=== PATIENT | male | born 1960 | race Caucasian/White ===

== ENCOUNTER 2017-07-29 18:21 | Emergency (ER) | payer MEDICARE, MEDICAID ==
[~2017-07-29] VITALS: Ht 188 cm; Wt 70.0 kg
[2017-07-29] MEDS ORDERED: LORazepam 2 mg/ml vial IV ONE (18:25)
[2017-07-29] MEDS ORDERED: normal saline 1000ML IV soln IVB ONE (18:25)
[2017-07-29] MEDS ORDERED: levetiracetam inj 500 MG in normal saline 100ml IV soln 95 ML IV ONE (18:25)
[2017-07-29 18:59] LABS: BASOPHILS % (AUTO) 0.3 % (0-1); EOSINOPHILS # (AUTO) 0.2 X10'3 (0-0.9); EOSINOPHILS % (AUTO) 2.6 % (0-6); HEMATOCRIT 45.2 % (42.0-52.0); HEMOGLOBIN 15.6 g/dl (14.0-17.9); MEAN CORPUSCULAR HEMOGLOBIN 30.9 PG (27.0-31.0); MEAN CORPUSCULAR HGB CONC 34.5 % (33.0-36.5); MEAN CORPUSCULAR VOLUME 89.6 FL (78-98); MEAN PLATELET VOLUME 6.8 FL (7.4-10.4); MONOCYTES # (AUTO) 0.7 X10'3 (0-0.9); MONOCYTES % (AUTO) 7.6 % (2-12); NEUTROPHILS # (AUTO) 5.8 X10'3 (1.8-7.7); NEUTROPHILS % (AUTO) 66.5 % (42-75); PLATELET COUNT 243 X10'3 (140-440); RED BLOOD COUNT 5.04 X10'6 (4.70-6.10); RED CELL DISTRIBUTION WIDTH 12.9 % (11.5-14.5); WHITE BLOOD COUNT 8.7 X10'3 (4.5-11.0)
[2017-07-29 19:16] LABS: ALANINE AMINOTRANSFERASE 31 U/L (12-78); ALBUMIN 4.2 G/DL (3.4-5.0); ALBUMIN/GLOBULIN RATIO 1.4 (1.1-1.5); ALKALINE PHOSPHATASE 98 IU/L (46-116); ANION GAP 13 (8-16); ASPARTATE AMINO TRANSFERASE 16 U/L (10-37); BILIRUBIN,TOTAL 0.3 MG/DL (0.1-1.0); BLOOD UREA NITROGEN 10 MG/DL (7-18); BUN/CREATININE RATIO 11.2 (5.4-32.0); CALCIUM 9.1 MG/DL (8.5-10.1); CHLORIDE 99 MMOL/L (99-107); CREATINE KINASE 54 U/L (39-308); CREATININE 0.89 MG/DL (0.60-1.10); GLUCOSE 99 MG/DL (70-104); POTASSIUM 3.5 MMOL/L (3.5-5.1); SODIUM 136 MMOL/L (135-145); TOTAL CARBON DIOXIDE 24.3 MMOL/L (24-32); TOTAL PROTEIN 7.3 G/DL (6.4-8.2); eGFR 89 ML/MIN
[2017-07-29] MEDS ORDERED: LEVE10002 PO (19:27)
[2017-07-29] MEDS ORDERED: FLUT16SP2 BOTHNARES (19:27)
[2017-07-29] MEDS ORDERED: DOCU100C41 PO (19:27)
[2017-07-29] MEDS ORDERED: OLAN10TA19 PO (19:27)
[2017-07-29] MEDS ORDERED: OMEP40CA37 PO (19:27)
[2017-07-29] MEDS ORDERED: OXCA150T5 PO (19:27)
[2017-07-29] MEDS ORDERED: FAMC500T18 PO (19:27)
[2017-07-29] MEDS ORDERED: DUTA0.5C40 PO (19:27)
[2017-07-29 19:50] VITALS: BP 132/88
== END 2017-07-29 21:00 | disposition home or self-care (01) ==
LOC: ER 18:22
DX: G40.909 Epilepsy, unspecified, not intractable, without status epilepticus (principal)
CPT/HCPCS: 36415; 80053; 82550; 85025; 96365; 96375; 99284; J1953; J2060; J7030

== ENCOUNTER 2019-03-17 20:20 | Emergency (ER) | payer MEDICARE, MEDICAID ==
[~2019-03-17] VITALS: Ht 157.5 cm; Wt 54.5 kg
[~2019-03-17 20:20] MED LIST: DOCU100C41 PO; DUTA0.5C40 PO; FAMC500T18 PO; FLUT16SP2 BOTHNARES; LEVE10002 PO; OLAN10TA19 PO; OMEP40CA13 PO; OXCA150T5 PO
[2019-03-17] MEDS ORDERED: TETanus/Pertussis (Acell)/Diphther VAC/PF (Tdap-Adult) 0.5ml syringe IMVAC ONE (20:25)
--- NOTE | 2019-03-17 20:36 | NUR ---
CARI YUN MOM [phone] PLEASE HAVE ACTIVITY AIDE CALL MOM
[2019-03-17] MEDS ORDERED: LIDOcaine 1% W/epiNEPHrine 1:200,000 10ml vial IJ ONE (22:25)
[2019-03-17 23:18] VITALS: BP 130/86
== END 2019-03-17 23:22 | disposition home or self-care (01) ==
LOC: ER 20:20
DX: S01.81XA Laceration without foreign body of other part of head, initial encounter (principal); R11.10 Vomiting, unspecified; R41.82 Altered mental status, unspecified; G80.9 Cerebral palsy, unspecified; W18.39XA Other fall on same level, initial encounter; Y93.89 Activity, other specified; Y92.89 Other specified places as the place of occurrence of the external cause; Y99.8 Other external cause status
CPT/HCPCS: 12013; 90471; 90715; 99284

== ENCOUNTER 2020-01-25 15:57 | Emergency (ER) | payer MEDICARE, MEDICAID ==
[~2020-01-25] VITALS: Ht 175.3 cm; Wt 56.4 kg
[~2020-01-25 15:57] MED LIST changes: -FAMC500T18 PO; +FAMC500T23 PO
[2020-01-25] MEDS ORDERED: LIDOcaine 1% W/epiNEPHrine 1:200,000 10ml vial IJ ONE (16:30)
[2020-01-25] MEDS ORDERED: LIDOcaine 1% w/epiNEPHrine 1:200,000 30ml vial IJ ONE (16:35)
[2020-01-25 17:51] VITALS: BP 135/88
== END 2020-01-25 17:48 | disposition home or self-care (01) ==
LOC: ER 15:58
DX: S01.81XA Laceration without foreign body of other part of head, initial encounter (principal); G80.9 Cerebral palsy, unspecified; X58.XXXA Exposure to other specified factors, initial encounter; Y93.9 Activity, unspecified; Y92.89 Other specified places as the place of occurrence of the external cause; Y99.8 Other external cause status; Z79.899 Other long term (current) drug therapy
CPT/HCPCS: 12013; 99282

== ENCOUNTER 2020-05-01 15:50 | Emergency (ER) | payer MEDICARE, MEDICAID ==
[~2020-05-01] VITALS: Ht 157.5 cm; Wt 58.1 kg
[2020-05-01] MEDS ORDERED: lactulose 20gm/30ml cup PO ONE (16:50)
[2020-05-01] MEDS ORDERED: magnesium citrate 296ml oral solution PO ONE (16:50)
[2020-05-01 17:15] LABS: BASOPHILS % (AUTO) 0.3 % (0-1); EOSINOPHILS # (AUTO) 0.2 X10'3 (0-0.9); EOSINOPHILS % (AUTO) 2.9 % (0-6); HEMATOCRIT 41.9 % (42.0-52.0); LYMPHOCYTES # (AUTO) 1.7 X10'3 (1.1-4.8); MEAN CORPUSCULAR HEMOGLOBIN 31.4 PG (27.0-31.0); MEAN CORPUSCULAR HGB CONC 33.4 g/dL (33.0-36.5); MEAN CORPUSCULAR VOLUME 93.9 FL (78-98); MEAN PLATELET VOLUME 6.7 FL (7.4-10.4); MONOCYTES # (AUTO) 0.7 X10'3 (0-0.9); MONOCYTES % (AUTO) 10.1 % (2-12); NEUTROPHILS # (AUTO) 4.6 X10'3 (1.8-7.7); NEUTROPHILS % (AUTO) 63.7 % (42-75); PLATELET COUNT 228 X10'3 (140-440); RED BLOOD COUNT 4.46 X10'6 (4.70-6.10); RED CELL DISTRIBUTION WIDTH 14.4 % (11.5-14.5); WHITE BLOOD COUNT 7.2 X10'3 (4.5-11.0)
[2020-05-01 17:28] LABS: ALANINE AMINOTRANSFERASE 16 U/L (12-78); ALBUMIN 3.9 G/DL (3.4-5.0); ALBUMIN/GLOBULIN RATIO 1.1 (1.1-1.5); ALKALINE PHOSPHATASE 90 IU/L (46-116); ANION GAP 9 (8-16); ASPARTATE AMINO TRANSFERASE 18 U/L (10-37); BILIRUBIN,TOTAL 0.3 MG/DL (0.1-1.0); BLOOD UREA NITROGEN 12 MG/DL (7-18); BUN/CREATININE RATIO 17.4 (5.4-32.0); CALCIUM 9.5 MG/DL (8.5-10.1); CHLORIDE 107 MMOL/L (99-107); CREATININE 0.69 MG/DL (0.60-1.10); GLUCOSE 77 MG/DL (70-104); LIPASE 145 U/L (73-393); POTASSIUM 3.9 MMOL/L (3.5-5.1); SODIUM 144 MMOL/L (135-145); TOTAL CARBON DIOXIDE 27.7 MMOL/L (24-32); TOTAL PROTEIN 7.4 G/DL (6.4-8.2); eGFR > 90 ML/MIN
[2020-05-01] MEDS ORDERED: NA P133E RC (17:32)
[2020-05-01] MEDS ORDERED: MAGN296S68 PO (17:32)
--- NOTE | 2020-05-01 20:05 | NUR ---
PT ON BSC, PASSING GAS. CAREGIVER IN ROOM HELPING PT
--- NOTE | 2020-05-01 21:04 | NUR ---
ADMINISTERED FLEET ENEMA. PT TOLERATED PROCEDURE WELL, CAREGIVER AT BS FOR COMFORT. PT ON BSC ATTEMPTING TO HAVE BM NOW. PRODUCING GAS
--- NOTE | 2020-05-01 21:50 | NUR ---
2ND FLEET ENEMA ADMINISTERED PER JULIET ANDREW ORDER.
--- NOTE | 2020-05-01 22:18 | NUR ---
PT HAS BEEN PASSING GAS. NOW ON BSC, ATTEMPTING TO HAVE BM. CAREGIVER STILL AT BS
[2020-05-02 02:15] VITALS: BP 137/90
== END 2020-05-02 02:10 | disposition home or self-care (01) ==
LOC: ER 15:50
DX: K59.00 Constipation, unspecified (principal); R43.8 Other disturbances of smell and taste; Z86.69 Personal history of other diseases of the nervous system and sense organs; Z79.899 Other long term (current) drug therapy
CPT/HCPCS: 36415; 74018; 80053; 83690; 85025; 99284

== ENCOUNTER 2020-08-03 13:34 | Emergency (ER) | payer MEDICARE, MEDICAID ==
[~2020-08-03] VITALS: Ht 165.1 cm; Wt 65.9 kg
[~2020-08-03 13:34] MED LIST changes: +MAGN296S68 PO; +NA P133E RC; -OMEP40CA13 PO; +OMEP40CA21 PO
[2020-08-03 14:42] LABS: BASOPHILS % (AUTO) 0.3 % (0-1); EOSINOPHILS # (AUTO) 0.2 X10'3 (0-0.9); EOSINOPHILS % (AUTO) 2.2 % (0-6); HEMATOCRIT 40.9 % (42.0-52.0); HEMOGLOBIN 13.8 g/dl (14.0-17.9); LYMPHOCYTES # (AUTO) 1.1 X10'3 (1.1-4.8); LYMPHOCYTES % (AUTO) 12.9 % (21-51); MEAN CORPUSCULAR HGB CONC 33.8 g/dL (33.0-36.5); MEAN CORPUSCULAR VOLUME 94.7 FL (78-98); MEAN PLATELET VOLUME 6.9 FL (7.4-10.4); MONOCYTES # (AUTO) 0.9 X10'3 (0-0.9); MONOCYTES % (AUTO) 11.1 % (2-12); NEUTROPHILS # (AUTO) 6.1 X10'3 (1.8-7.7); NEUTROPHILS % (AUTO) 73.5 % (42-75); PLATELET COUNT 194 X10'3 (140-440); RED BLOOD COUNT 4.32 X10'6 (4.70-6.10); WHITE BLOOD COUNT 8.3 X10'3 (4.5-11.0)
[2020-08-03 15:06] LABS: ALBUMIN 3.6 G/DL (3.4-5.0); ALBUMIN/GLOBULIN RATIO 1.3 (1.1-1.5); ALKALINE PHOSPHATASE 92 IU/L (46-116); ANION GAP 8 (8-16); ASPARTATE AMINO TRANSFERASE 18 U/L (10-37); BILIRUBIN,TOTAL 0.4 MG/DL (0.1-1.0); BLOOD UREA NITROGEN 15 MG/DL (7-18); BUN/CREATININE RATIO 23.1 (5.4-32.0); CALCIUM 8.4 MG/DL (8.5-10.1); CHLORIDE 95 MMOL/L (99-107); CREATININE 0.65 MG/DL (0.60-1.10); GLUCOSE 146 MG/DL (70-104); POTASSIUM 4.2 MMOL/L (3.5-5.1); SODIUM 128 MMOL/L (135-145); TOTAL CARBON DIOXIDE 25.3 MMOL/L (24-32); TOTAL PROTEIN 6.4 G/DL (6.4-8.2); eGFR > 90 ML/MIN
[2020-08-03] MEDS ORDERED: normal saline 1000ML IV soln IVB ONE (15:15)
[2020-08-03 15:25] LABS: ALANINE AMINOTRANSFERASE 14 U/L (12-78)
--- NOTE | 2020-08-03 16:10 | NUR ---
UA NOT NEEDED AT THIS TIME PER DR. OLIVEIRA.
[2020-08-03 17:02] VITALS: BP 138/92
== END 2020-08-03 17:04 | disposition home or self-care (01) ==
LOC: ER 13:35
DX: R56.9 Unspecified convulsions (principal); E87.1 Hypo-osmolality and hyponatremia; Z79.899 Other long term (current) drug therapy
CPT/HCPCS: 36415; 80053; 85025; 96360; 99284; J7030

== ENCOUNTER 2020-08-03 18:05 | Emergency (ER) | payer MEDICARE, MEDICAID ==
[~2020-08-03] VITALS: Ht 172.7 cm; Wt 65.0 kg
[2020-08-03] MEDS ORDERED: TETanus/Pertussis (Acell)/Diphther VAC/PF (Tdap-Adult) 0.5ml syringe IMVAC ONE (18:15)
[2020-08-03 20:10] VITALS: BP 134/96
== END 2020-08-03 20:12 | disposition home or self-care (01) ==
LOC: ER 18:06
DX: S01.81XA Laceration without foreign body of other part of head, initial encounter (principal); S09.90XA Unspecified injury of head, initial encounter; G40.909 Epilepsy, unspecified, not intractable, without status epilepticus; R62.50 Unspecified lack of expected normal physiological development in childhood; Z79.899 Other long term (current) drug therapy; W01.0XXA Fall on same level from slipping, tripping and stumbling without subsequent striking against object, initial encounter; Z91.81 History of falling; Y93.89 Activity, other specified; Y92.89 Other specified places as the place of occurrence of the external cause; Y99.8 Other external cause status
CPT/HCPCS: 12011; 70450; 70486; 90471; 90715; 99285

== ENCOUNTER 2020-08-14 15:39 | Emergency (ER) | payer MEDICARE, MEDICAID ==
[~2020-08-14] VITALS: Ht 167.6 cm; Wt 61.0 kg
[2020-08-14] MEDS ORDERED: LIDOcaine 1% W/epiNEPHrine 1:200,000 10ml vial IJ ONE (17:00)
[2020-08-14 17:41] LABS: ANION GAP 7 (8-16); BLOOD UREA NITROGEN 10 MG/DL (7-18); BUN/CREATININE RATIO 13.7 (5.4-32.0); CALCIUM 8.5 MG/DL (8.5-10.1); CHLORIDE 99 MMOL/L (99-107); CREATININE 0.73 MG/DL (0.60-1.10); GLUCOSE 89 MG/DL (70-104); POTASSIUM 4.2 MMOL/L (3.5-5.1); SODIUM 137 MMOL/L (135-145); TOTAL CARBON DIOXIDE 30.7 MMOL/L (24-32); eGFR > 90 ML/MIN
== END 2020-08-14 18:44 | disposition home or self-care (01) ==
LOC: ER 15:39
DX: S01.81XA Laceration without foreign body of other part of head, initial encounter (principal); E87.1 Hypo-osmolality and hyponatremia; Z86.69 Personal history of other diseases of the nervous system and sense organs; Z79.2 Long term (current) use of antibiotics; Z79.899 Other long term (current) drug therapy; W18.30XA Fall on same level, unspecified, initial encounter; Y93.89 Activity, other specified; Y92.89 Other specified places as the place of occurrence of the external cause; Y99.8 Other external cause status
CPT/HCPCS: 12013; 36415; 80048; 99283

== ENCOUNTER 2021-05-20 15:06 | Emergency (ER) | payer MEDICARE, MEDICAID ==
[~2021-05-20] VITALS: Ht 167.6 cm; Wt 61.8 kg
[~2021-05-20 15:06] MED LIST changes: -OLAN10TA19 PO; +OLAN10TA73 PO
[2021-05-20 15:17] VITALS: BP 139/101
== END 2021-05-20 16:45 | disposition home or self-care (01) ==
LOC: ER 15:07
DX: S01.81XA Laceration without foreign body of other part of head, initial encounter (principal); S00.81XA Abrasion of other part of head, initial encounter; R62.50 Unspecified lack of expected normal physiological development in childhood; Z86.69 Personal history of other diseases of the nervous system and sense organs; Z79.2 Long term (current) use of antibiotics; Z79.899 Other long term (current) drug therapy; W18.09XA Striking against other object with subsequent fall, initial encounter; Y93.89 Activity, other specified; Y92.89 Other specified places as the place of occurrence of the external cause; Y99.8 Other external cause status
CPT/HCPCS: 12011; 99282

== ENCOUNTER 2021-06-11 11:11 | Emergency (ER) | payer MEDICARE, MEDICAID ==
[~2021-06-11] VITALS: Ht 160 cm; Wt 59.1 kg
--- NOTE | 2021-06-11 11:40 | NUR ---
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
[2021-06-11 12:07] LABS: HEMATOCRIT 40.8 % (42.0-52.0); HEMOGLOBIN 13.9 g/dl (14.0-17.9); WHITE BLOOD COUNT 5.3 X10'3 (4.5-11.0)
[2021-06-11 12:08] LABS: BASOPHILS % (AUTO) 0.2 % (0-1); EOSINOPHILS # (AUTO) 0.2 X10'3 (0-0.9); EOSINOPHILS % (AUTO) 2.9 % (0-6); LYMPHOCYTES # (AUTO) 1.2 X10'3 (1.1-4.8); LYMPHOCYTES % (AUTO) 21.7 % (21-51); MEAN CORPUSCULAR HEMOGLOBIN 32.2 PG (27.0-31.0); MEAN CORPUSCULAR HGB CONC 33.9 g/dL (33.0-36.5); MEAN CORPUSCULAR VOLUME 94.9 FL (78-98); MEAN PLATELET VOLUME 6.4 FL (7.4-10.4); MONOCYTES # (AUTO) 0.5 X10'3 (0-0.9); MONOCYTES % (AUTO) 9.4 % (2-12); NEUTROPHILS # (AUTO) 3.5 X10'3 (1.8-7.7); NEUTROPHILS % (AUTO) 65.8 % (42-75); PLATELET COUNT 147 X10'3 (140-440); RED CELL DISTRIBUTION WIDTH 14.7 % (11.5-14.5)
[2021-06-11 12:25] LABS: ALANINE AMINOTRANSFERASE 16 U/L (12-78); ALBUMIN 3.7 G/DL (3.4-5.0); ALBUMIN/GLOBULIN RATIO 1.3 (1.1-1.5); ALKALINE PHOSPHATASE 154 IU/L (46-116); ANION GAP 8 (8-16); ASPARTATE AMINO TRANSFERASE 16 U/L (10-37); BILIRUBIN,TOTAL 0.4 MG/DL (0.1-1.0); BLOOD UREA NITROGEN 5 MG/DL (7-18); BUN/CREATININE RATIO 8.2 (5.4-32.0); CALCIUM 8.6 MG/DL (8.5-10.1); CHLORIDE 102 MMOL/L (99-107); CREATININE 0.61 MG/DL (0.60-1.10); GLUCOSE 102 MG/DL (70-104); POTASSIUM 4.1 MMOL/L (3.5-5.1); SODIUM 138 MMOL/L (135-145); TOTAL CARBON DIOXIDE 28.5 MMOL/L (24-32); TOTAL PROTEIN 6.6 G/DL (6.4-8.2); eGFR > 90 ML/MIN
[2021-06-11 13:15] VITALS: BP 148/104
== END 2021-06-11 14:28 | disposition home or self-care (01) ==
LOC: ER 11:11
DX: I49.8 Other specified cardiac arrhythmias (principal); R62.50 Unspecified lack of expected normal physiological development in childhood; R47.01 Aphasia; R56.9 Unspecified convulsions; Z86.73 Personal history of transient ischemic attack (TIA), and cerebral infarction without residual deficits; Z86.69 Personal history of other diseases of the nervous system and sense organs; Z79.2 Long term (current) use of antibiotics; Z79.899 Other long term (current) drug therapy
CPT/HCPCS: 36415; 80053; 85025; 85610; 99284

== ENCOUNTER 2021-06-20 15:40 | Emergency (ER) | payer MEDICARE, MEDICAID ==
[~2021-06-20] VITALS: Ht 165.1 cm; Wt 60.5 kg
[2021-06-20] MEDS ORDERED: ibuprofen tablet 400 MG TABLET PO ONE (16:20)
[2021-06-20] MEDS ORDERED: acetaminophen 325mg tablet PO ONE (16:20)
--- NOTE | 2021-06-20 18:28 | NUR ---
GAVE REPORT TO OLIVIA WASSERMAN.
[2021-06-20 20:42] VITALS: BP 128/76
== END 2021-06-20 20:43 | disposition home or self-care (01) ==
LOC: ER 15:41
DX: S83.105A Unspecified dislocation of left knee, initial encounter (principal); S80.02XA Contusion of left knee, initial encounter; M25.562 Pain in left knee; M25.462 Effusion, left knee; Z86.73 Personal history of transient ischemic attack (TIA), and cerebral infarction without residual deficits; Z86.69 Personal history of other diseases of the nervous system and sense organs; Z79.899 Other long term (current) drug therapy; X58.XXXA Exposure to other specified factors, initial encounter; Y93.89 Activity, other specified; Y92.89 Other specified places as the place of occurrence of the external cause; Y99.8 Other external cause status; R62.50 Unspecified lack of expected normal physiological development in childhood
CPT/HCPCS: 73564; 99284

== ENCOUNTER 2021-07-01 12:40 | Emergency (ER) | payer MEDICARE, MEDICAID ==
[~2021-07-01] VITALS: Ht 165.1 cm; Wt 57.0 kg
[2021-07-01 13:01] VITALS: BP 138/85
== END 2021-07-01 14:42 | disposition home or self-care (01) ==
LOC: ER 12:40
DX: M25.462 Effusion, left knee (principal); Z86.73 Personal history of transient ischemic attack (TIA), and cerebral infarction without residual deficits; Z86.69 Personal history of other diseases of the nervous system and sense organs; Z79.2 Long term (current) use of antibiotics; Z79.899 Other long term (current) drug therapy
CPT/HCPCS: 99281

== ENCOUNTER 2021-07-20 19:45 | Emergency (ER) | payer MEDICARE, MEDICAID ==
[~2021-07-20] VITALS: Ht 167.6 cm; Wt 85.2 kg
[2021-07-20] MEDS ORDERED: ceFAZolin 1gm IM kit IM ONE (21:20)
[2021-07-20] MEDS ORDERED: HYDR-3965 PO (22:21)
[2021-07-20] MEDS ORDERED: ONDA4TAB12 PO (22:21)
[2021-07-20] MEDS ORDERED: CEPH250T PO (22:21)
[2021-07-20 22:57] VITALS: BP 120/80
== END 2021-07-20 22:59 | disposition home or self-care (01) ==
LOC: ER 19:46
DX: S62.646B Nondisplaced fracture of proximal phalanx of right little finger, initial encounter for open fracture (principal); R22.0 Localized swelling, mass and lump, head; R62.50 Unspecified lack of expected normal physiological development in childhood; N40.0 Benign prostatic hyperplasia without lower urinary tract symptoms; Z86.73 Personal history of transient ischemic attack (TIA), and cerebral infarction without residual deficits; Z79.2 Long term (current) use of antibiotics; Z79.899 Other long term (current) drug therapy; W19.XXXA Unspecified fall, initial encounter; Y93.89 Activity, other specified; Y92.89 Other specified places as the place of occurrence of the external cause; Y99.8 Other external cause status
CPT/HCPCS: 29125; 73130; 96372; 99284; J0690

== ENCOUNTER 2021-07-22 09:44 | Emergency (ER) | payer MEDICARE, MEDICAID ==
[~2021-07-22] VITALS: Ht 167.6 cm; Wt 62.7 kg
[~2021-07-22 09:44] MED LIST changes: +CEPH250T PO; +HYDR-3965 PO; +ONDA4TAB12 PO
[2021-07-22 10:43] VITALS: BP 109/79
== END 2021-07-22 11:50 | disposition home or self-care (01) ==
LOC: ER 09:45
DX: G89.29 Other chronic pain (principal); M25.562 Pain in left knee; M25.462 Effusion, left knee; I51.9 Heart disease, unspecified
CPT/HCPCS: 73560; 99283

== ENCOUNTER 2021-08-09 16:47 | Emergency (ER) | payer MEDICARE, MEDICAID ==
[~2021-08-09] VITALS: Ht 180.3 cm; Wt 90.9 kg
[~2021-08-09 16:47] MED LIST changes: -CEPH250T PO; -HYDR-3965 PO
[2021-08-09 17:49] VITALS: BP 133/74
--- NOTE | 2021-08-09 17:50 | NUR ---
CHICKEN BUYER AT BEDSIDE TO RE-WRAP HAND.
== END 2021-08-09 18:30 | disposition home or self-care (01) ==
LOC: ER 16:48
DX: R22.32 Localized swelling, mass and lump, left upper limb (principal); R62.50 Unspecified lack of expected normal physiological development in childhood; N40.0 Benign prostatic hyperplasia without lower urinary tract symptoms; Z86.73 Personal history of transient ischemic attack (TIA), and cerebral infarction without residual deficits; Z79.899 Other long term (current) drug therapy
CPT/HCPCS: 29125; 99284; A6449

== ENCOUNTER 2021-12-25 12:45 | Emergency (ER) | payer MEDICARE, MEDICAID ==
[~2021-12-25] VITALS: Ht 165.1 cm; Wt 58.1 kg
[2021-12-25 13:16] VITALS: BP 138/79
--- NOTE | 2021-12-25 13:49 | NUR ---
dr. null called aravind pt mother Addendum: 12/25/21 at 1351 by LISA obtained consent to scan pt head. Caregiver at bedside.
== END 2021-12-25 15:09 | disposition home or self-care (01) ==
LOC: ER 12:45
DX: S01.112A Laceration without foreign body of left eyelid and periocular area, initial encounter (principal); F41.9 Anxiety disorder, unspecified; R56.9 Unspecified convulsions; Z86.73 Personal history of transient ischemic attack (TIA), and cerebral infarction without residual deficits; Z86.69 Personal history of other diseases of the nervous system and sense organs; Z79.899 Other long term (current) drug therapy; W19.XXXA Unspecified fall, initial encounter; Y93.89 Activity, other specified; Y92.89 Other specified places as the place of occurrence of the external cause; Y99.8 Other external cause status
CPT/HCPCS: 99283; 99284; A6449

== ENCOUNTER 2022-07-03 15:38 | Emergency (ER) | payer MEDICARE, MEDICAID ==
[~2022-07-03] VITALS: Ht 165.1 cm; Wt 57.0 kg
[2022-07-03] MEDS ORDERED: ketamine 50 mg/ml 10ml vial IV ONE ×2 (16:20→16:55)
[2022-07-03] MEDS ORDERED: LIDOcaine 1% (10mg/ml)w/preservative inj. 20ml MDV SQ STA (17:15)
[2022-07-03] MEDS ORDERED: ketamine 10mg/ml 20ml inj vial IV ONE (17:25)
[2022-07-03 18:27] VITALS: BP 135/101
[2022-07-03] MEDS ORDERED: ACET-1059 PO (18:28)
[2022-07-03] MEDS ORDERED: AMOX-117 PO (18:28)
[2022-07-03] MEDS ORDERED: amox tr/potassium clavulanate 875/125mg TAB PO ONE (18:55)
== END 2022-07-03 19:14 | disposition home or self-care (01) ==
LOC: ER 15:39
DX: S01.511A Laceration without foreign body of lip, initial encounter (principal); S09.93XA Unspecified injury of face, initial encounter; W19.XXXA Unspecified fall, initial encounter; Y93.89 Activity, other specified; Y92.89 Other specified places as the place of occurrence of the external cause; Y99.8 Other external cause status
CPT/HCPCS: 12011; 70160; 73560; 99152; 99153; 99285; J3490; J7030; 94760; A6449

== ENCOUNTER 2022-09-28 15:53 | Emergency (ER) | payer MEDICARE, MEDICAID ==
[~2022-09-28] VITALS: Ht 165.1 cm; Wt 55.5 kg
[2022-09-28 16:42] VITALS: BP 132/88; PULSE 65; TEMP 97.9; O2SAT 100
[2022-09-28 17:43] LABS: EOSINOPHILS # (AUTO) 0.1 X10'3 (0-0.9); MONOCYTES # (AUTO) 0.8 X10'3 (0-0.9); WHITE BLOOD COUNT 7.3 X10'3 (4.5-11.0)
[2022-09-28 17:45] LABS: BASOPHILS % (AUTO) 0.2 % (0-1); HEMOGLOBIN 12.8 g/dl (14.0-17.9); LYMPHOCYTES # (AUTO) 1.2 X10'3 (1.1-4.8); LYMPHOCYTES % (AUTO) 16.5 % (21-51); MEAN CORPUSCULAR HEMOGLOBIN 33.3 PG (27.0-31.0); MEAN CORPUSCULAR HGB CONC 33.7 g/dL (33.0-36.5); MEAN CORPUSCULAR VOLUME 98.8 FL (78-98); MEAN PLATELET VOLUME 6.1 FL (7.4-10.4); NEUTROPHILS # (AUTO) 5.2 X10'3 (1.8-7.7); NEUTROPHILS % (AUTO) 71.3 % (42-75); PLATELET COUNT 159 X10'3 (140-440); RED BLOOD COUNT 3.85 X10'6 (4.70-6.10); RED CELL DISTRIBUTION WIDTH 15.5 % (11.5-14.5)
[2022-09-28 17:56] LABS: ALANINE AMINOTRANSFERASE 13 U/L (12-78); ALBUMIN 3.4 G/DL (3.4-5.0); ALBUMIN/GLOBULIN RATIO 1.3 (1.1-1.5); ALKALINE PHOSPHATASE 252 IU/L (46-116); ANION GAP 7 (8-16); ASPARTATE AMINO TRANSFERASE 14 U/L (10-37); BILIRUBIN,TOTAL 0.3 MG/DL (0.1-1.0); BLOOD UREA NITROGEN 9 MG/DL (7-18); CALCIUM 8.3 MG/DL (8.5-10.1); CHLORIDE 96 MMOL/L (99-107); GLUCOSE 79 MG/DL (70-104); POTASSIUM 4.3 MMOL/L (3.5-5.1); SODIUM 131 MMOL/L (135-145); TOTAL CARBON DIOXIDE 27.9 MMOL/L (24-32); TOTAL PROTEIN 6.1 G/DL (6.4-8.2); eGFR > 90 ML/MIN
[2022-09-28 18:36] LABS: CLARITY,URINE CLEAR (Clear); COLOR,URINE YELLOW (Yellow); GLUCOSE, URINE NEGATIVE (Neg); KETONES,URINE NEGATIVE (Neg); LEUKOCYTE ESTERASE ,URINE NEGATIVE (Neg); NITRITES, URINE NEGATIVE (Neg); OCCULT BLOOD,URINE NEGATIVE (Neg); PROTEIN,URINE TRACE mg/dl (Neg)
[2022-09-28 18:39] LABS: UA COLLECTION TYPE OTHER
[2022-09-28 18:44] LABS: BACTERIA,URINE FEW /HPF (Neg); RBC,URINE 0-2 /HPF (0-2); SQUAMOUS EPITHELIAL CELL,UR FEW /LPF (FEW); WBC,URINE 0-4 /HPF (0-4)
[2022-09-28 19:31] VITALS: RESP 15
== END 2022-09-28 21:26 | disposition home or self-care (01) ==
LOC: ER 15:53
DX: R60.0 Localized edema (principal); Z79.899 Other long term (current) drug therapy
CPT/HCPCS: 36415; 71045; 80053; 81001; 83880; 85025; 99284

== ENCOUNTER 2022-12-13 15:24 | Emergency (ER) | payer MEDICARE, MEDICAID ==
[~2022-12-13] VITALS: Ht 157.5 cm; Wt 54.5 kg
[~2022-12-13 15:24] MED LIST changes: +ASCO500C17 PO; +CIPR2.5D12 RIGHTEYE; +DICL20GE TOP; +DIVA-74 PO; -DOCU100C41 PO; +DUTA0.5C36 PO; -DUTA0.5C40 PO; -FAMC500T23 PO; +FAMC500T3 PO; +FEXO180T94 PO; +LACT1CAP65 PO; -LEVE10002 PO; +LEVE10006 PO; -MAGN296S68 PO; +MELA5CAP PO; -NA P133E RC; -OLAN10TA73 PO; +OLAN15TA35 PO; +OMEP20CA16 PO; -OMEP40CA21 PO; -ONDA4TAB12 PO; -OXCA150T5 PO; +OXCA300T16 PO; +POLY119P2 PO; +SODI100035 PO
[2022-12-13 15:54] VITALS: BP 134/99; PULSE 98; RESP 18; TEMP 98.1; O2SAT 99
== END 2022-12-13 19:43 | disposition home or self-care (01) ==
LOC: ER 15:24
DX: S93.491A Sprain of other ligament of right ankle, initial encounter (principal); X58.XXXA Exposure to other specified factors, initial encounter; Y93.89 Activity, other specified; Y92.89 Other specified places as the place of occurrence of the external cause; Y99.8 Other external cause status
CPT/HCPCS: 73610; 99283; A6449

== ENCOUNTER 2022-12-17 09:55 | Emergency (ER) | payer MEDICARE, MEDICAID ==
[~2022-12-17] VITALS: Ht 165.1 cm; Wt 72.7 kg
[2022-12-17 09:58] VITALS: TEMP 97.6
[2022-12-17 11:52] VITALS: BP 127/80; PULSE 82; RESP 18; O2SAT 99
--- NOTE | 2022-12-17 13:37 | NUR ---
THERMAL INTELLIGENCE ANALYST ASSESSMENT REVIEWED BY SAIDA RN; APPROVED
== END 2022-12-17 12:04 | disposition home or self-care (01) ==
LOC: ER 09:56
DX: S93.402A Sprain of unspecified ligament of left ankle, initial encounter (principal); X58.XXXA Exposure to other specified factors, initial encounter; Y93.89 Activity, other specified; Y92.89 Other specified places as the place of occurrence of the external cause; Y99.8 Other external cause status
CPT/HCPCS: 73610; 99284

== ENCOUNTER 2023-01-04 10:16 | Emergency (ER) | payer MEDICARE, MEDICAID ==
[~2023-01-04] VITALS: Ht 157.5 cm; Wt 536.0 kg
[2023-01-04 11:56] VITALS: TEMP 97.1
[2023-01-04 12:09] VITALS: BP 142/93; PULSE 80; RESP 16; O2SAT 97
== END 2023-01-04 13:45 | disposition home or self-care (01) ==
LOC: ER 10:16
DX: R60.0 Localized edema (principal); Z79.899 Other long term (current) drug therapy; Z79.1 Long term (current) use of non-steroidal anti-inflammatories (NSAID); Z79.2 Long term (current) use of antibiotics
CPT/HCPCS: 73564; 93971; 99284

== ENCOUNTER 2023-01-27 15:54 | Emergency (ER) | payer MEDICARE, MEDICAID ==
[~2023-01-27] VITALS: Ht 154.9 cm; Wt 64.0 kg
[2023-01-27 18:13] LABS: BILIRUBIN,URINE NEGATIVE (Neg); CLARITY,URINE CLEAR (Clear); COLOR,URINE YELLOW (Yellow); GLUCOSE, URINE NEGATIVE (Neg); KETONES,URINE NEGATIVE (Neg); LEUKOCYTE ESTERASE ,URINE NEGATIVE (Neg); NITRITES, URINE NEGATIVE (Neg); OCCULT BLOOD,URINE NEGATIVE (Neg); PH,URINE 7.5 (4.8-8.0); PROTEIN,URINE NEGATIVE (Neg); UROBILINOGEN,URINE 0.2 E.U/dL (0.2-1.0)
[2023-01-27 18:21] LABS: UA COLLECTION TYPE STRAIGHT CATH
[2023-01-27 19:26] VITALS: BP 120/78; PULSE 69; RESP 16; TEMP 98; O2SAT 98
== END 2023-01-27 19:29 | disposition home or self-care (01) ==
LOC: ER 15:54
DX: S09.90XA Unspecified injury of head, initial encounter (principal); Z79.2 Long term (current) use of antibiotics; Z79.1 Long term (current) use of non-steroidal anti-inflammatories (NSAID); W18.30XA Fall on same level, unspecified, initial encounter; Y93.89 Activity, other specified; Y92.89 Other specified places as the place of occurrence of the external cause; Y99.8 Other external cause status
CPT/HCPCS: 70450; 72125; 73030; 81003; 99284; C1758

== ENCOUNTER 2024-04-22 18:16 | Emergency (ER) | payer MEDICARE, MEDICAID ==
[~2024-04-22] VITALS: Ht 152.4 cm; Wt 59.1 kg
[~2024-04-22 18:16] MED LIST changes: -OLAN15TA35 PO; +OLAN15TA97 PO
[2024-04-22 18:22] VITALS: BP 147/86; PULSE 99; RESP 18; TEMP 100.1; O2SAT 98
[2024-04-22] MEDS: oseltamivir phos 75mg capsule PO ONE (20:58)
[2024-04-22] MEDS ORDERED: TAM75C PO (21:10)
== END 2024-04-22 21:24 | disposition home or self-care (01) ==
LOC: ER 18:16
DX: J10.1 Influenza due to other identified influenza virus with other respiratory manifestations (principal); Z86.73 Personal history of transient ischemic attack (TIA), and cerebral infarction without residual deficits; Z79.899 Other long term (current) drug therapy; Z20.822 Contact with and (suspected) exposure to COVID-19
CPT/HCPCS: 36415; 71045; 87502; 87503; 87811; 99284

== ENCOUNTER 2024-04-29 22:34 | Emergency (ER) | payer MEDICARE, MEDICAID ==
[~2024-04-29] VITALS: Ht 172.7 cm; Wt 59.4 kg
[~2024-04-29 22:34] MED LIST changes: +TAM75C PO
[2024-04-29 22:47] VITALS: BP 130/87; PULSE 99; RESP 18; TEMP 98.1; O2SAT 97
[2024-04-29] MEDS: LORazepam 1 MG tablet PO ONE (23:40)
[2024-04-30] MEDS: LIDOCAINE 1%/EPI 1:100,000 inj. 10 ML multi-dose vial IJ ONE
== END 2024-04-30 01:31 | disposition home or self-care (01) ==
LOC: ER 22:35
DX: S01.81XA Laceration without foreign body of other part of head, initial encounter (principal); Z86.73 Personal history of transient ischemic attack (TIA), and cerebral infarction without residual deficits; W01.190A Fall on same level from slipping, tripping and stumbling with subsequent striking against furniture, initial encounter; Y93.89 Activity, other specified; Y92.89 Other specified places as the place of occurrence of the external cause; Y99.8 Other external cause status
CPT/HCPCS: 12013; 70486; 99284; A6258; A6402; A6449; Z7610

== ENCOUNTER 2024-10-26 10:38 | Emergency (ER) | payer MEDICARE, MEDICAID ==
[~2024-10-26] VITALS: Ht 157.5 cm; Wt 60.9 kg
[~2024-10-26 10:38] MED LIST changes: +LEVE100023 PO; -LEVE10006 PO; -TAM75C PO
[2024-10-26 11:09] VITALS: TEMP 97.3
[2024-10-26 12:56] VITALS: BP 129/90; PULSE 87; RESP 18; O2SAT 97
--- NOTE | 2024-10-26 12:58 | Physician Documentation ---
History of Present Illness ~ Chief Complaint: Mechanical Fall Stated Complaint: FALL Time Seen by MD: 12:55 Primary Medical Doctor: Dr. VERA HPI 64-year-old male, history of cognitive impairment, who comes from a living facility after an unwitnessed fall. Per staff, the patient was found on the ground, with a hole in the wall. They think that he probably hit his head against the wall. No change in behavior. No reported loss of consciousness. No obvious injuries to the head. The patient is nonverbal at baseline, and so history is limited Tetanus within 5 Years?: Yes Medication Reconciliation Allergies: Coded Allergies: No Known Allergies (Unverified , 10/26/24) Scheduled Ascorbic Acid (Vitamin C), 1 CAP PO BID, (Reported) Ciprofloxacin Hcl (Ciloxan 0.35 Ophth Drops), 1 DRP RIGHTEYE Q4H Diclofenac Sodium (Voltaren Arthritis Pain), 2 GM TOP TID, (Reported) Divalproex Sodium (Divalproex Sodium), 2 TAB PO BID, (Reported) Dutasteride (Dutasteride), 1 CAP PO DAILY, (Reported) Famciclovir (Famciclovir), 1 TAB PO DAILY, (Reported) Fexofenadine* (Penny*), 1 TAB PO DAILY, (Reported) Fluticasone Propionate (Flonase), 2 SPRAYS BOTHNARES DAILY, (Reported) Lactobacillus Acidophilus (Probiotic), 2 CAP PO DAILY, (Reported) Levetiracetam (Levetiracetam), 0.5 TAB PO BID, (Reported) Melatonin (Melatonin), 1 CAP PO HS, (Reported) Olanzapine (Olanzapine), 1 TAB PO HS, (Reported) Omeprazole (Omeprazole), 1 CAP PO BID, (Reported) Oxcarbazepine (Oxcarbazepine), 1 TAB PO BID, (Reported) Polyethylene Glycol 3350 (Miralax), 17 GM PO DAILY, (Reported) Sodium Chloride (Sodium Chloride), 2 TAB PO Q12H, (Reported) Past Medical History 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*, CVA/TIA/Stroke, Seizures, BPH Past Surgical History: noncontributory Alcohol Use: None Drug Use: none Lives In: Other Review of Systems Unable to obtain complete ROS: other (Cognitive difficulty) Physical Exam Vital Signs: Temperature: 97.3, Source: Temporal, Heart Rate: 87, Respiratory Rate: 18, BP: 129/90, Pulse Oximetry: 97, Weight: 60.910 Oxygen Flow Rate: 0 Physical Exam General: This is a chronically ill-appearing middle-aged man, groaning in yelling, hand box coverer at bedside HEENT: Atraumatic, no obvious hematoma, laceration abrasions to the scalp, pupils are 3 mm and equal, oropharynx is moist Heart: Regular rate and rhythm, normal-appearing peripheral perfusion Lungs: normal work of breathing, normal oxygen saturation on room air Extremities: Warm and well-perfused. No traumatic findings Neuro: The patient is alert, he is watching me, he is nonverbal but does groan and yells intermittently Progress Results/Orders Results/Orders Vital Signs 10/26/24 10/26/24 11:09 12:56 Temp 97.3 Pulse 88 87 Resp 16 18 B/P (MAP) 107/75 129/90 (103) Pulse Ox 98 97 O2 Flow Rate 0 0 Consults/PCP Consults/PCP : Additional Comment Phone call: I spoke to Carito, the manager fiber at the patient's assisted living facility. I discussed that he could not tolerate the CT scan, and discussed whether we would need to sedate him to further evaluate him, versus discharge him back with close observation. She spoke to the nurse manager fiber as well, and they agreed that he could be discharged back to the facility without sedation or imaging, and that this is likely what his [id number] would recommend. They do have a blanket consent for medical care. Return precautions were discussed. Medical Decision Making Additional Comment The patient presents with an unwitnessed fall and concern for possible head injury. Here in the ED he is reportedly at his mental status baseline, and on my exam he has no evidence of dangerous injury including no evidence of head injury. We did attempt to get a head CT, but he did not tolerate it. I do not feel that any further workup or testing is indicated other than a head CT. I did speak to his facility and the manager fiber, who felt that returning him without a CT scan was appropriate, and they would watch him closely for any other worsening symptoms. He will be discharged with strict return precautions. Departure Time of Disposition: 13:15 Disposition: 01 HOME / SELF CARE / HOMELESS Impression: Primary Impression: Fall Condition: Stable Discharge Instructions: Fall Prevention in the Home, Adult, [id number] Referrals: NO PRIMARY CARE PROVIDER (PCP) Education Educated: Other Educated regarding: diagnosis, need for follow up Signature Scribe Signature: na Attestation: JENNIFER Heck MD Oct 26, 2024 12:58
== END 2024-10-26 13:50 | disposition home or self-care (01) ==
LOC: ER 10:39
DX: R51.9 Headache, unspecified (principal); N40.0 Benign prostatic hyperplasia without lower urinary tract symptoms; Z86.73 Personal history of transient ischemic attack (TIA), and cerebral infarction without residual deficits; W19.XXXA Unspecified fall, initial encounter; Y93.89 Activity, other specified; Y92.89 Other specified places as the place of occurrence of the external cause; Y99.8 Other external cause status
CPT/HCPCS: 99282

== ENCOUNTER 2024-12-11 16:56 | Emergency (ER) | payer MEDICARE, MEDICAID ==
[~2024-12-11] VITALS: Ht 167.6 cm; Wt 59.1 kg
[2024-12-11 17:14] VITALS: TEMP 97.8
--- NOTE | 2024-12-11 20:15 | Physician Documentation ---
History of Present Illness ~ Chief Complaint: Mechanical Fall Stated Complaint: HEAD LAC Time Seen by MD: 20:14 Primary Medical Doctor: Dr. VERA HPI Patient presents to the emergency room after fall with a positive head strike and loss of consciousness. He is not on blood thinners. He required some imaging early in the day and required sedation to get the imaging. Upon going home patient fell as how striking his face with one mental loss of consciousness. Caregiver at bedside states he will likely need sedation that has otherwise acting like himself right now. Tetanus within 5 Years?: Yes Medication Reconciliation Allergies: Coded Allergies: No Known Allergies (Unverified , 12/11/24) Scheduled Ascorbic Acid (Vitamin C), 1 CAP PO BID, (Reported) Ciprofloxacin Hcl (Ciloxan 0.35 Ophth Drops), 1 DRP RIGHTEYE Q4H Diclofenac Sodium (Voltaren Arthritis Pain), 2 GM TOP TID, (Reported) Divalproex Sodium (Divalproex Sodium), 2 TAB PO BID, (Reported) Dutasteride (Dutasteride), 1 CAP PO DAILY, (Reported) Famciclovir (Famciclovir), 1 TAB PO DAILY, (Reported) Fexofenadine* (Penny*), 1 TAB PO DAILY, (Reported) Fluticasone Propionate (Flonase), 2 SPRAYS BOTHNARES DAILY, (Reported) Lactobacillus Acidophilus (Probiotic), 2 CAP PO DAILY, (Reported) Levetiracetam (Levetiracetam), 0.5 TAB PO BID, (Reported) Melatonin (Melatonin), 1 CAP PO HS, (Reported) Olanzapine (Olanzapine), 1 TAB PO HS, (Reported) Omeprazole (Omeprazole), 1 CAP PO BID, (Reported) Oxcarbazepine (Oxcarbazepine), 1 TAB PO BID, (Reported) Polyethylene Glycol 3350 (Miralax), 17 GM PO DAILY, (Reported) Sodium Chloride (Sodium Chloride), 2 TAB PO Q12H, (Reported) Past Medical History 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 EOMI. PERRL. ENT: Mucous membranes moist. Neck: Supple, trachea is midline. Chest: Clear to auscultation bilaterally without rales, rhonchi, or wheezes. There is no accessory muscle use or retractions. Cardiac: RRR without murmurs, gallops, or rubs. Progress Results/Orders Results/Orders Vital Signs 12/11/24 12/11/24 12/11/24 12/11/24 17:14 19:36 19:36 21:03 Temp 97.8 Pulse 98 75 84 Resp 18 16 16 16 B/P (MAP) 134/95 126/72 (90) 141/100 (114) Pulse Ox 98 95 98 O2 Flow Rate 0 0 Medical Decision Making Additional info obtained from: other Findings Patient presented to the emergency room for evaluation after fall as per HPI. Differentials include but are not limited to intracranial bleed, fractures, dislocation, soft tissue injury. Imaging reassuring. Differential Dx:Considerations: Include: Closed head injury, Cardiac injury, Fracture(s), Intraabdominal injury, Pneumothorax, Cerebral contusion, Pulmonary contusion, Spine injury, Tracheal injury, Urological injury, Vascular injury, Abrasion(s), Contusion(s), Foreign body(s), Hematoma(s), Laceration(s), Encephalopathy, Other Departure Disposition: 01 HOME / SELF CARE / HOMELESS Impression: Primary Impression: Fall Condition: Stable Discharge Instructions: Fall Prevention in the Home, Adult, [id number] Referrals: NO PRIMARY CARE PROVIDER (PCP) Signature Scribe Signature: No scribe Attestation: The note accurately reflects work and decisions made by me.Devendra Gill MD 12/11/24 21:53 DEVENDRA GILL MD Dec 11, 2024 20:15
[2024-12-11 21:03] VITALS: BP 141/100; PULSE 84; RESP 16; O2SAT 98
--- NOTE | 2024-12-11 21:09 | RADIOLOGY REPORT ---
EXAM: CT CT CERVICAL SPINE HISTORY: fall, swelling bruising to face. right orbital socket COMPARISON: CT CT HEAD on DOS: 12/11/24, CT CT CERVICAL SPINE on DOS: 01/27/23, CT CT HEAD on DOS: 01/27/23 CTDIvol 25.55 mGy, DLP 667.53 mGy*cm. TECHNIQUE: Multiple axial CT images of the spine were obtained using bone algorithm. Axial and coronal reformatting was done. Bone and soft tissue windows were reviewed. FINDINGS: No evidence of definite acute fracture, spinal dislocation, or significant appearing acute subluxation is seen. Large bridging osteophytes fusing the C4-T1 vertebral bodies compatible with DISH. IMPRESSION: No acute cervical spine abnormality.
--- NOTE | 2024-12-11 21:45 | RADIOLOGY REPORT ---
HISTORY: fall, swelling bruising to face. right orbital socket TECHNIQUE: Nonenhanced axial images through the facial bones with coronal and sagittal MPR. Radiation Dose Information: CT Dose: CTDI volume is 54.49 mGy. Dose-length product is 1079.39 mGy*cm COMPARISON: CT CT FACIAL BONES/SOFT TISSUE on DOS: 04/29/24, CT CT HEAD on DOS: 01/27/23 FINDINGS: Imaging degraded by severe motion artifact. Mandible: Unremarkable Maxilla: Unremarkable Zygomatic arches: Unremarkable Nasal bone: Unremarkable Orbits: Unremarkable Sinuses: Mucosal thickening throughout the left maxillary sinus, left frontal sinus, and bilateral ethmoids. Facial swelling: Diffuse basal swelling. IMPRESSION: No acute facial fractures. Radiation optimization: All CT scans at this facility use at least one of these dose optimization techniques: automated exposure control mA and/or kV adjustment per patient size (includes targeted exams where dose is matched to clinical indication) or iterative reconstruction.
--- NOTE | 2024-12-11 21:46 | RADIOLOGY REPORT ---
Procedure: CT [facility] Study Date and Requested Time: 12/11/2024 08:25 PM History: fall, swelling bruising to face. right orbital socket Comparison: CT CT HEAD on DOS: 01/27/23 Dose: CTDI: 61.27 mGy DLP: 1370.13 mGycm Technique: Multiplanar images obtained through the brain without intravenous contrast. Findings: Motion artifact limits evaluation of the cerebellum and inferior occipital lobe. Mild Diffuse brain atrophy with Mild chronic small-vessel ischemic changes. Unchanged [id number] dilatation of the ventricles, out of proportion with Cortical Atrophy which may represent normal pressure hydrocephalus in the right clinical setting. No hemorrhages, masses, mass effect, midline shift, herniation or cytotoxic edema following a large vascular territory. No intra-axial or extra-axial fluid collections. The basal cisterns are patent. The pituitary gland, sella and parasellar regions are unremarkable. The cerebellar tonsils are in normal position. Limited evaluation of the cerebellum. Bilateral lens replacement. Otherwise, orbits and globes are unremarkable. Opacification of the left frontal sinus with mucoperiosteal thickening of bilateral anterior ethmoid air cells and left maxillary sinus. The bilateral mastoids are clear. Possible Cerumen within the Left external auditory canal. There are no worrisome calvarial lesions. Moderate right-sided periorbital soft tissue edema with mild forehead soft tissue edema. Impression: Limited evaluation of the cerebellum and inferior occipital lobe due to motion. Otherwise, no evidence for acute intracranial abnormalities. Unchanged [id number] dilatation of the ventricles, out of proportion void cortical atrophy which may be seen with normal-pressure hydrocephalus in the right clinical setting. Moderate right-sided periorbital soft tissue edema with mild forehead soft tissue edema. Opacification of the left frontal sinus with mucoperiosteal thickening of the left maxillary sinus and bilateral anterior ethmoid air cells.
== END 2024-12-11 22:06 | disposition home or self-care (01) ==
LOC: ER 16:56
DX: S06.9X9A Unspecified intracranial injury with loss of consciousness of unspecified duration, initial encounter (principal); Z86.73 Personal history of transient ischemic attack (TIA), and cerebral infarction without residual deficits; Z79.899 Other long term (current) drug therapy; W18.30XA Fall on same level, unspecified, initial encounter; Y93.89 Activity, other specified; Y92.89 Other specified places as the place of occurrence of the external cause; Y99.8 Other external cause status
CPT/HCPCS: 70450; 70486; 72125; 99284